=== PATIENT | female | born 1980 | race African-American/Black ===

== ENCOUNTER 2020-01-04 15:14 | Emergency (ER) | payer OTHER ==
[~2020-01-04] VITALS: Ht 165.1 cm; Wt 80.9 kg
[2020-01-04] MEDS ORDERED: FLEXERIL 1010 MG/TAB PO (16:02)
[2020-01-04] MEDS ORDERED: NAPROSYN500 MG PO (16:02)
[2020-01-04 16:37] VITALS: BP 123/75; PULSE 75; TEMP 97.3
== END 2020-01-04 16:33 | disposition home or self-care (01) ==
LOC: COL.ER 15:14
DX: M62.838 Other muscle spasm (principal)
CPT/HCPCS: J1885

== ENCOUNTER 2020-05-02 15:30 | Outpatient (RCR) | payer OTHER ==
[~2020-05-02 15:30] MED LIST: FLEXERIL 1010 MG/TAB PO; NAPROSYN500 MG PO
== END 2020-05-22 | disposition still patient (30) ==
LOC: WSC
DX: M54.6 Pain in thoracic spine (principal)

== ENCOUNTER → 2020-11-22 | Outpatient (CLI) | payer OTHER | LOC: MHCPAIN 13:00 | DX: M47.812 Spondylosis without myelopathy or radiculopathy, cervical region (principal); M54.12 Radiculopathy, cervical region; G89.29 Other chronic pain | CPT/HCPCS: G0463 ==

== ENCOUNTER → 2020-12-01 | Outpatient (CLI) | payer OTHER | LOC: MHCPAIN 08:21 | DX: M47.812 Spondylosis without myelopathy or radiculopathy, cervical region (principal); M54.12 Radiculopathy, cervical region | CPT/HCPCS: J1100; Q9967 ==

== ENCOUNTER → 2022-04-12 | Outpatient (CLI) | payer OTHER | LOC: MC.RAD 13:08 | DX: Z12.31 Encounter for screening mammogram for malignant neoplasm of breast (principal) ==